=== PATIENT | male | born 1990 | race Caucasian/White ===

== ENCOUNTER 2020-02-22 18:51 | Emergency (ER) | payer SELFPAY ==
[~2020-02-22] VITALS: Ht 180.3 cm; Wt 70.3 kg
--- NOTE | 2020-02-22 19:27 | NUR ---
Jeremy Nicholas spoke with girlfriend, Ana Laura on the phone regarding pt status and plan of care.
--- NOTE | 2020-02-22 19:36 | ED Head Injury ---
General Chief Complaint: Head/Cervical Problems Stated Complaint: HEAD PAIN FROM FALL Nursing Triage Note: Pt reports tripping over shoes and falling face first into a trash can. Pt has 1.5 cm and 0.5 cm lacerations to R eye. Pt denies LOC but reports feeling "dazed" for a few seconds after accident. Source: patient Exam Limitations: no limitations History of Present Illness Date Seen by Provider: Feb 22, 2020 Time Seen by Provider: 19:32 Initial Comments To ER with reports of falling into a trash can just prior to arrival. Laceration to the lateral aspect right eyebrow and right lateral cheek. No loss of consciousness but he did feel dazed. He feels very fatigued since that happened but he states he only slept about 2 hours last night. Occurred: just prior to arrival Severity: moderate Loss of Consciousness: no loss of consciousness Associated Systoms: Headaches Allergies and Home Medications Patient Home Medication List Home Medication List Reviewed: Yes Review of Systems Review of Systems Constitutional: see HPI Eyes: No Symptoms Reported Ears, Nose, Mouth, Throat: no symptoms reported Respiratory: no symptoms reported Cardiovascular: no symptoms reported Genitourinary: no symptoms reported Musculoskeletal: no symptoms reported Skin: no symptoms reported Psychiatric/Neurological: No Symptoms Reported Endocrine: No Symptoms Reported Hematologic/Lymphatic: No Symptoms Reported Past Ycppxzs-Uwwohy-Qbtszu Hx Patient Social History Alcohol Use: Occasionally Uses Recreational Drug Use: Yes (marijuana) Smoking Status: Current Everyday Smoker Type Used: Cigarettes 2nd Hand Smoke Exposure: Yes Recent Foreign Travel: No Contact w/Someone Who Travel: No Recent Infectious Disease Expo: No Recent Hopitalizations: No Past Medical History Surgeries: Yes Nose Respiratory: Yes Asthma Cardiac: No Neurological: No Genitourinary: No Gastrointestinal: No Musculoskeletal: Yes (spinal stenosis) HEENT: No Psychosocial: Yes Anxiety Integumentary: No Physical Exam Vital Signs Capillary Refill : Less Than 3 Seconds Height, Weight, BMI Height: '" Weight: lbs. oz. kg; 21.00 BMI Method: General Appearance: WD/WN, no apparent distress HEENT: PERRL/EOMI, normal ENT inspection, TMs normal, other (there is a 1.570 laceration lateral aspect of the right eyebrow that is down to the subcutaneous tissue. There is a smaller 0.5 cm laceration and zygomatic process of the right cheek To the subcutaneous tissue. Each of these was anesthetized with a total of 1 mL of lidocaine without epinephrine and then scrubbed with chlorhexidine/saline solution and then sutured. The lower laceration got one simple interrupted 5-0 Ethilon suture the upper laceration one continuous suture 5-0 Ethilon.) Neck: non-tender, full range of motion Cardiovascular: regular rate, rhythm, no murmur Respiratory: no respiratory distress, no accessory muscle use Extremities: normal range of motion, non-tender Psychiatric: alert, oriented x 3 Crainal Nerves: normal hearing, normal speech, PERRL Skin: normal color, warm/dry Christina Coma Score Best Eye Response: (4) Open Spontaneously Best Verbal Response: (5) Oriented Best Motor Response: (6) Obeys Commands Christina Total: 15 Progress/Results/Core Measures Results/Orders My Orders Orders - VIRI MONTALVO APRN Ct Head Wo (02/22/20 19:10) Blood Pressure Mean: 93 Departure Impression Primary Impression: Mild concussion Qualified Codes: S06.0X1A - Concussion with loss of consciousness of 30 minutes or less, initial encounter Additional Impression: Facial laceration Qualified Codes: S01.81XA - Laceration without foreign body of other part of head, initial encounter Disposition: 01 HOME, SELF-CARE Condition: Stable Departure-Patient Inst. Decision time for Depature: 19:35 Referrals: UNKNOWN (PCP/Family) Primary Care Physician Patient Instructions: Laceration Repair With Stitches (DC) Add. Discharge Instructions: you can shower starting tonight leading water run over these. Return to ER for any concerns. Otherwise return in 5 days to have the stitches removed. Discharge instructions reviewed with patient and/or family. Voiced understanding. VIRI MONTALVO APRN Feb 22, 2020 19:36
--- NOTE | 2020-02-22 19:43 | Diagnostic Imaging Report ---
PROCEDURE: CT head without contrast. TECHNIQUE: Multiple contiguous axial images were obtained through the brain without the use of intravenous contrast. Auto Exposure Controls were utilized during the CT exam to meet ALARA standards for radiation dose reduction. INDICATION: Fall with head trauma. FINDINGS: The ventricles and sulci are within normal limits. There is no hydrocephalus or cerebral edema. There is no midline shift or mass effect. There is no intracranial mass, hemorrhage, or extra-axial fluid collection. The visualized paranasal sinuses and mastoid air cells are clear. There are no regional areas of decreased attenuation appreciated to suggest an acute CVA. IMPRESSION: No acute intracranial abnormality. Dictated by: Dictated on workstation # [id number]
--- NOTE | 2020-02-22 20:26 | NUR ---
Called girlfriend with dc instructions.
[2020-02-22 20:30] VITALS: BP 117/74
--- OUTSIDE RECORDS SUMMARY | 2020-02-22 21:10 | XMS REPORT | Continuity of Care Document ---
Author Organization Unknown Address Unknown Phone Unavailable Allergies Active Description Code Type Severity Reaction Onset Reported/Identified Relationship to Patient Clinical Status Yes morphine [id number] Drug Allergy Unknown Rash 02/22/2020 Yes Penicillins [id number] Drug Aller gy Unknown N/A 02/22/2020 Yes Sulfa (Sulfonamide Antibiotics) [id number] Drug Allergy Unknown N/A 020 Medications There is no data. Problems There is no data. Procedures There is no data. Results Test Result Range COVID-19 ([facility]) - 01/31/20 10:18 Encounters ACCT No. Visit Date/Time Discharge Status Pt. Type Provider Facility Loc./Unit Complaint [id number] 01/31/2020 16:30:00 01/31/2020 23:59: 59 [facility] Outpatient [facility] [id number] 01/31/2020 16:30:00 Document Registration [id number] 02/22/2020 18:55:00 020 20:29:00 DIS Emergency VIRI MONTALVO APRN [facility] ER HEAD PAIN FROM FALL
== END 2020-02-22 20:29 | disposition home or self-care (01) ==
LOC: ER 18:55
DX: S06.0X0A Concussion without loss of consciousness, initial encounter (principal); S01.81XA Laceration without foreign body of other part of head, initial encounter; S01.411A Laceration without foreign body of right cheek and temporomandibular area, initial encounter; R40.2142 Coma scale, eyes open, spontaneous, at arrival to emergency department; R40.2252 Coma scale, best verbal response, oriented, at arrival to emergency department; R40.2362 Coma scale, best motor response, obeys commands, at arrival to emergency department; F17.210 Nicotine dependence, cigarettes, uncomplicated; W01.198A Fall on same level from slipping, tripping and stumbling with subsequent striking against other object, initial encounter
CPT/HCPCS: 12011; 70450

== ENCOUNTER 2020-08-22 17:22 | Emergency (ER) | payer BC ==
[~2020-08-22] VITALS: Ht 180.3 cm; Wt 78.9 kg
[2020-08-22 17:32] VITALS: BP 119/74
--- NOTE | 2020-08-22 18:12 | ED General ---
General Stated Complaint: INGUINAL HERNIA PAIN Source of Information: Patient Exam Limitations: No Limitations History of Present Illness Date Seen by Provider: Aug 22, 2020 Time Seen by Provider: 18:09 Initial Comments This is a healthy-appearing 30-year-old who presents to the ER with complaints of left inguinal hernia 2 months. States he was urged by family members to come to ER for evaluation.That he does have an appointment with Dr. Garcia on September 01. States his hernia has been increasingly protruding, even though he has been abiding by weight lifting restrictions. States the hernia is not protruding at this time nor does he have any pain, he is just seeking further evaluation per family members urging. Denies fevers, chills, cough, shortness of breath, nausea, vomiting, abdominal pain, or difficulty urinating. Allergies and Home Medications Allergies Coded Allergies: Penicillins (Verified Allergy, Unknown, 02/22/20) "deadly" Sulfa (Sulfonamide Antibiotics) (Verified Allergy, Unknown, 02/22/20) morphine (Verified Allergy, Unknown, Rash, 02/22/20) Patient Home Medication List Home Medication List Reviewed: Yes Review of Systems Review of Systems Constitutional: no symptoms reported EENTM: no symptoms reported Respiratory: no symptoms reported Cardiovascular: no symptoms reported Gastrointestinal: no symptoms reported Genitourinary: see HPI Musculoskeletal: no symptoms reported Skin: no symptoms reported Psychiatric/Neurological: No Symptoms Reported Hematologic/Lymphatic: No Symptoms Reported Immunological/Allergic: no symptoms reported Past Xxdbbzf-Wmmzft-Oaeezk Hx Patient Social History Type Used: Cigarettes 2nd Hand Smoke Exposure: Yes Recent Foreign Travel: No Contact w/Someone Who Travel: No Recent Hopitalizations: No Past Medical History Surgeries: Yes Nose Respiratory: Yes Asthma Cardiac: No Neurological: No Genitourinary: No Gastrointestinal: No Musculoskeletal: Yes (spinal stenosis) HEENT: No Psychosocial: Yes Anxiety Integumentary: No Physical Exam Vital Signs Vital Signs - First Documented 08/22/20 17:32 Temp 36.5 Pulse 91 Resp 20 B/P (MAP) 119/74 (89) Pulse Ox 96 O2 Delivery Room Air Capillary Refill : Height, Weight, BMI Height: '" Weight: lbs. oz. kg; 21.00 BMI Method: General Appearance: No Apparent Distress, WD/WN HEENT: PERRL/EOMI, TMs Normal, Normal ENT Inspection, Pharynx Normal, Moist Mucous Membranes Neck: Full Range of Motion, Normal Inspection Respiratory: Lungs Clear, Normal Breath Sounds Cardiovascular: Regular Rate, Rhythm, No Murmur, Normal Peripheral Pulses Gastrointestinal: Normal Bowel Sounds, Non Tender, Soft Genital/Rectal: Normal Genital Exam, Other (neg protrusion of inguinal hernia ) Back: Normal Inspection, No Vertebral Tenderness Extremity: Normal Capillary Refill, Normal Inspection, Normal Range of Motion Neurologic/Psychiatric: Alert, Oriented x3, No Motor/Sensory Deficits, Normal Mood/Affect Skin: Normal Color, Warm/Dry Progress/Results/Core Measures Suspected Sepsis SIRS Temperature: Pulse: Respiratory Rate: Blood Pressure / Mean: Results/Orders Vital Signs/I&O Capillary Refill : Progress Note : Progress Note Pt. examined. Has no protrusion of hernia at this time nor does he have any pain. States he just wanted to get checked out per family urging. Reviewed techniques to reduce the frequency of hernia protrusion. Verbalized understanding. He was given irving bandages to make an inguinal binder, to see if this helps reduce frequency. Reviewed discharge plan and he is agreeable with plan. Departure Impression Primary Impression: Inguinal hernia Disposition: 01 HOME, SELF-CARE Condition: Stable/Unchanged Departure-Patient Inst. Decision time for Depature: 18:10 Referrals: NO,LOCAL PHYSICIAN (PCP/Family) Primary Care Physician Patient Instructions: Inguinal and Femoral (Groin) Hernias Add. Discharge Instructions: Plan: 1. Discharge home. Keep follow up with Dr. Garcia on 09/01 as previously scheduled. 2. May take Tylenol or Ibuprofen as needed for pain per package instructions. 3. No lifting anything over 10 pounds. Avoid strenuous activity. Use irving wrap to make binder for groin. 4. You can also try wearing more supportive underwear. 5. Return to ER if you are unable to reduce your hernia or you have pain that wont go away. 6. Return for any new or concerning symptoms. MADELINE RODRIGUES SHOP TECHNICIAN Aug 22, 2020 18:12
== END 2020-08-22 18:17 | disposition home or self-care (01) ==
LOC: EDUNIT# 17:22 → ER 17:24
DX: K40.90 Unilateral inguinal hernia, without obstruction or gangrene, not specified as recurrent (principal); Z88.0 Allergy status to penicillin; Z88.5 Allergy status to narcotic agent; Z88.2 Allergy status to sulfonamides; Z77.22 Contact with and (suspected) exposure to environmental tobacco smoke (acute) (chronic)
CPT/HCPCS: 99282

== ENCOUNTER 2020-09-09 05:34 | Outpatient (RCR) | payer BC ==
[~2020-09-09] VITALS: Ht 180 cm; Wt 81.0 kg
[~2020-09-09 05:34] MED LIST: ASPI-992 PO; KETO10TA PO; RT-ALBUINH IH
[2020-09-11] MEDS ORDERED: DOCU-143 PO (09:57)
[2020-09-11] MEDS ORDERED: ACHD5005 PO (09:57)
== END 2020-09-10 10:04 | disposition home or self-care (01) ==
LOC: PREOP 05:34
PROVIDERS: ATTEND Surgery
DX: Z01.812 Encounter for preprocedural laboratory examination (principal); K40.90 Unilateral inguinal hernia, without obstruction or gangrene, not specified as recurrent; Z20.822 Contact with and (suspected) exposure to COVID-19
CPT/HCPCS: 87635

== ENCOUNTER 2020-09-11 07:52 | Day surgery (SDC) | payer BC ==
[2020-09-11] VITALS (9 sets, daily range): BP systolic 100–131; BP diastolic 52–89
[~2020-09-11] VITALS: Ht 180 cm; Wt 81.0 kg
[2020-09-11] MEDS ORDERED: LIDOCAINE/EPI 1%-1:200,000 (XYLOCAINE) 10 ML VIAL ONE (07:56)
[2020-09-11] MEDS ORDERED: CLINDAMYCIN 600 MG/50 ML IVPB 50 ML IV ONE (08:00)
--- NOTE | 2020-09-11 08:04 | Progress Note-Pre Operative ---
Pre-Operative Progress Note H&P Reviewed The H&P was reviewed, patient examined and no changes noted. Date Seen by Provider: Sep 11, 2020 Time Seen by Provider: 08:04 Date H&P Reviewed: Sep 11, 2020 Time H&P Reviewed: 08:04 Pre-Operative Diagnosis: left inguinal hernia MICHELE ARCHER DO Sep 11, 2020 08:04
[2020-09-11] MEDS: LACTATED RINGERS 1,000 ML IV PRN ×2 (08:30→10:13)
[2020-09-11] MEDS ORDERED: fentaNYL INJECTION 100 MCG/2 ML AMP ONE ×2 (08:44→09:22)
[2020-09-11] MEDS ORDERED: MIDAZOLAM 2 MG/2 ML (VERSED) VIAL ONE (08:44)
[2020-09-11] MEDS ORDERED: LIDOCAINE PF 2% 5 ML (XYLOCAINE) VIAL ONE (08:44)
[2020-09-11] MEDS ORDERED: ROCURONIUM 10 MG/ML 5 ML SYRINGE IV ONE (08:44)
[2020-09-11] MEDS ORDERED: proPOfol 200 MG/20 ML (DIPRIVAN) VIAL IV ONE (08:44)
[2020-09-11] MEDS ORDERED: ONDANSETRON 4 MG/2 ML (SDV) Z0FRAN ONE (08:44)
[2020-09-11] MEDS ORDERED: NEOSTIGMINE 3 MG/3 ML VIAL ONE (08:45)
[2020-09-11] MEDS ORDERED: SEVOFLURANE (ULTANE) 15 ML INHAL SOLN ONE (08:45)
[2020-09-11] MEDS ORDERED: GLYCOPYRROLATE 0.2 MG/ML (ROBINUL) 2 ML VIAL ONE (08:45)
[2020-09-11] MEDS ORDERED: MEPERIDINE (DEMEROL) INJ 50 MG/ML IVP ONE (09:30)
[2020-09-11] MEDS ORDERED: fentaNYL INJECTION 100 MCG/2 ML AMP IVP ONE (09:30)
[2020-09-11] MEDS ORDERED: ONDANSETRON 4 MG/2 ML (SDV) Z0FRAN IVP PRN (09:30)
--- NOTE | 2020-09-11 09:56 | Progress Note-Post Operative ---
Post-Operative Progess Note Surgeon (s)/Custodian Supervisor (s) Surgeon MICHELE ARCHER DO Custodian Supervisor: Dr. Lim to assist in retraction dissection and closure Pre-Operative Diagnosis left inguinal hernia Post-Operative Diagnosis indirect inguinal hernia left Procedure & Operative Findings Date of Procedure 09/11/20 Procedure Performed/Findings PROCEDURE: Open left inguinal hernia repair COMPLICATIONS: None. INDICATIONS: The patient is a 30, male male with a inguinal hernia. He understands risks and benefits of procedure and wished to proceed with procedure. Consent was signed in the chart. DESCRIPTION OF PROCEDURE: The patient was taken to the operating suite, was prepped and draped in sterile fashion. Surgical pause was performed. Local anesthetic was infiltrated in the lower quadrant. Incision was made and cautery used to dissect down to the external oblique, which was then opened down through the external ring. The spermatic cord was then dissected around. A Myles drain was placed around it and there was no direct defect present. A indirect hernia present which was then dissected off of spermatic cord. The hernia sac was then twisted and suture ligated. Using ProGrip mesh, this was secured at Ulices's ligament and then incorporated around the spermatic cord and placed under the external oblique. Hemostasis was achieved. The external oblique was then closed recreating the external ring and then the subcutaneous tissues were then reapproximated using 3-0 Vicryl and skin was then closed using 4-0 Monocryl in a subcuticular fashion. The abdomen was then washed and dried and Skin Affix was placed over the incision. The patient tolerated procedure well without any complications and taken to recovery room in stable condition. Anesthesia Type general Estimated Blood Loss Estimated blood loss (mL): minimal Specimens/Packing Specimens Removed hernia sac MICHELE ARCHER DO Sep 11, 2020 09:56
[2020-09-11] MEDS ORDERED: ACHD5005 PO (09:57)
[2020-09-11] MEDS ORDERED: DOCU-143 PO (09:57)
--- NOTE | 2020-09-11 09:58 | Discharge Inst-Simple/Standard ---
Discharge Inst-Standard Discharge Medications New, Converted or Re-Newed RX: RX on Chart Patient Instructions/Follow Up Plan of Care/Instructions/FU: 3 weeks Jose Activity as Tolerated: No Discharge Diet: Regular Diet Other Inst to Patient Follow up Appt: Make appointment for 3 week. Instructions: No lifting greater than 10 pounds. No strenuous activity. May shower in 24 hours, no tub bath or soaking. Use incentive spirometer at home as directed. No Smoking Skin/Wound Care: You have special glue over your incision that will fall off on it's own. Symptoms to Report: Appetite Changes, Extremity Discoloration, Numbness/Tingling, Swelling Increased, Bleeding Excessive, Eyesight Changes, Pain Increased, Urine Color Change, Constipation(Persistent), Fever over 101 degree F, Pain/Pressure in chest, Urinating Difficulty, Cough Up/Vomit Blood, Heart Beat Irreg/Pounding, Pain/Pressure in jaw, Vaginal Bleeding Increase, Cramps in feet or legs, Lightheadedness, Pain/Pressure in shoulder, Diarrhea(Persistent), Memory Changes Suddenly, Questions/Concerns, Weight gain consecutive days, Dizziness/Fainting, Nausea/Vomiting, Shortness of Breath, Weight gain over 2 pounds If questions or concerns contact your physician Or seek help at emergency department. MICHELE ARCHER DO Sep 11, 2020 09:58
--- NOTE | 2020-09-11 14:08 | Anesthesia-General Post-Op ---
General Patient Condition Mental Status/LOC: Same as Preop Cardiovascular: Satisfactory Nausea/Vomiting: Absent Respiratory: Satisfactory Pain: Controlled Complications: Absent Post Op Complications Complications None Follow Up Care/Instructions Patient Instructions None needed. Anesthesia/Patient Condition Patient Condition Patient is doing well, no complaints, stable vital signs, no apparent adverse anesthesia problems. No complications reported per nursing. STALIN STRANGE CRNA Sep 11, 2020 14:08
== END 2020-09-11 12:35 | disposition home or self-care (01) ==
LOC: SDC 07:52
PROVIDERS: ATTEND Surgery
DX: K40.90 Unilateral inguinal hernia, without obstruction or gangrene, not specified as recurrent (principal); J45.909 Unspecified asthma, uncomplicated; F41.9 Anxiety disorder, unspecified; K21.9 Gastro-esophageal reflux disease without esophagitis; F17.210 Nicotine dependence, cigarettes, uncomplicated; Z79.899 Other long term (current) drug therapy; Z79.51 Long term (current) use of inhaled steroids; Z88.0 Allergy status to penicillin; Z88.2 Allergy status to sulfonamides; Z88.5 Allergy status to narcotic agent
CPT/HCPCS: 49505; 87081; C1781

== ENCOUNTER 2021-03-04 18:33 | Emergency (ER) | payer BC ==
[~2021-03-04] VITALS: Ht 180 cm; Wt 86.1 kg
[~2021-03-04 18:33] MED LIST changes: +ACHD5005 PO; +DOCU-143 PO
--- NOTE | 2021-03-04 19:01 | ED Back Pain ---
General Chief Complaint: Back Problems Stated Complaint: BACK PAIN Nursing Triage Note: Patient ambulatory to ER with c/o middle back pain. Pt states he was sick over the weekend with cough, hot flashes and decreased appetite.He states he is better from that but now has pain to the middle of his spine. He denies any recent injuries. Source of Information: Patient Exam Limitations: No Limitations History of Present Illness Date Seen by Provider: Mar 04, 2021 Time Seen by Provider: 18:51 Allergies and Home Medications Allergies Coded Allergies: Penicillins (Verified Allergy, Unknown, 02/22/20) "deadly" Sulfa (Sulfonamide Antibiotics) (Verified Allergy, Unknown, 02/22/20) morphine (Verified Allergy, Unknown, Rash, 02/22/20) Home Medications Albuterol Sulfate 1 Puff Puff, 2 PUFF IH Q4H, (Reported) 1 PUFF = 90 MCG Docusate Sodium 100 Mg Capsule, 100 MG PO BID Prescribed by: MICHELE ARCHER on 09/11/20 0957 Hydrocodone/Acetaminophen 1 Each Tablet, 1 EACH PO Q4H PRN for PAIN-MODERATE (5- 7) Prescribed by: MICHELE ARCHER on 09/11/20 0957 Past Jwrhdzx-Dzevde-Fqvfmi Hx Patient Social History Tobacco Use?: Yes Tobacco type used: Cigarettes Smoking Status: Current Someday Smoker Smokeless Tobacco Frequency: Never a User Use of E-Cig and/or Vaping dev: No Substance use?: No Alcohol Frequency: Once in a while Pt feels they are or have been: No Immunizations Up To Date Tetanus Booster (TDap): Unknown Seasonal Allergies Seasonal Allergies: No Past Medical History Surgery/Hospitalization HX: hernia repair, nasal surgery Surgeries: Yes Nose Respiratory: Yes Asthma Currently Using CPAP: No Currently Using BIPAP: No Cardiac: No Neurological: Yes Headaches /Migraines Genitourinary: No Gastrointestinal: No Musculoskeletal: Yes (spinal stenosis) Endocrine: No HEENT: No Cancer: No Psychosocial: Yes Anxiety Integumentary: No Blood Disorders: No Physical Exam Vital Signs Vital Signs - First Documented 03/04/21 18:44 Temp 37.3 Pulse 92 Resp 16 B/P (MAP) 126/80 (95) Pulse Ox 97 O2 Delivery Room Air Capillary Refill : Less Than 3 Seconds Height, Weight, BMI Height: '" Weight: lbs. oz. kg; 26.00 BMI Method: Progress/Results/Core Measures Results/Orders Lab Results Laboratory Tests Test 03/04/21 19:03 03/04/21 19:06 Range/Units Urine Color YELLOW Urine Clarity CLEAR Urine pH 7.5 5-9 Urine Specific [employer] 1.015 L 1.016-1.022 Urine Protein NEGATIVE NEGATIVE Urine Glucose (UA) NEGATIVE NEGATIVE Urine Ketones NEGATIVE NEGATIVE Urine Nitrite NEGATIVE NEGATIVE Urine Bilirubin NEGATIVE NEGATIVE Urine Urobilinogen 1.0 < = 1.0 MG/DL Urine Leukocyte Esterase NEGATIVE NEGATIVE Urine RBC (Auto) NEGATIVE NEGATIVE Urine RBC NONE /HPF Urine WBC NONE /HPF Urine Crystals PRESENT H /LPF Urine Amorphous Sediment LARGE MESFIN PHOSPHATE H /LPF Urine Bacteria NEGATIVE /HPF Urine Casts NONE /LPF Urine Mucus NEGATIVE /LPF Urine Culture Indicated NO Influenza Type A (RT-PCR) Not Detected Not Detecte Influenza Type B (RT-PCR) Not Detected Not Detecte SARS-CoV-2 RNA (RT-PCR) Detected H Not Detecte My Orders Orders - MADELINE RODRIGUES AUTOMOTIVE CUSTOMER EXPERIENCE ADVISOR Ua Culture If Indicated (03/04/21 18:37) Covid 19 Inhouse Test (03/04/21 19:01) Influenza A And B By Pcr (03/04/21 19:01) Vital Signs/I&O 03/04/21 18:44 Temp 37.3 Pulse 92 Resp 16 B/P (MAP) 126/80 (95) Pulse Ox 97 O2 Delivery Room Air Blood Pressure Mean: 95 Departure Impression Primary Impression: COVID-19 Disposition: 01 HOME, SELF-CARE Condition: Stable Departure-Patient Inst. Decision time for Depature: 20:08 Referrals: NO,LOCAL PHYSICIAN (PCP/Family) Primary Care Physician Patient Instructions: COVID-19 ED, COVID-19 (DC) Add. Discharge Instructions: Plan: 1. Isolate at home until you are released by the [facility]. 2. Drink plenty of fluids. Use your incentive spirometer every 2 hours while awake as shown in ED. 3. Take your steroids with food. 4. Return for any new, concerning, or worsening symptoms. All discharge instructions reviewed with patient and/or family. Voiced understanding. Scripts Methylprednisolone (Methylprednisolone Dose Pack) 4 Mg Tab.ds.pk 4 MG PO UD for 6 Days, #21 PKG 0 Refills PER DOSE PACK INSTRUCTIONS Prov: LILIAMADELINE WALL APRN 03/04/21 MADELINE RODRIGUES APRN Mar 04, 2021 19:01
[2021-03-04 19:15] LABS: BILIRUBIN,URINE NEGATIVE (NEGATIVE); CLARITY,URINE CLEAR; COLOR,URINE YELLOW; GLUCOSE, URINE (UA) NEGATIVE (NEGATIVE); KETONES,URINE NEGATIVE (NEGATIVE); LEUKOCYTE ESTERASE ,URINE NEGATIVE (NEGATIVE); NITRITE,URINE NEGATIVE (NEGATIVE); PH,URINE 7.5 (5-9); PROTEIN,URINE NEGATIVE (NEGATIVE)
[2021-03-04 20:04] LABS: AMORPHOUS SEDIMENT,UR LARGE AMOR PHOSPHATE /LPF; BACTERIA,URINE NEGATIVE /HPF
[2021-03-04] MEDS ORDERED: METH4TAB10 PO (20:08)
[2021-03-04 20:19] VITALS: BP 126/82
[2021-03-04] MEDS ORDERED: KETOROLAC 30 MG/ML VIAL IM ONE (20:30)
[2021-03-04] MEDS ORDERED: ORPHENADRINE 60 MG/2 ML (NORFLEX) AMP (ED ONLY) IM ONE (20:30)
[2021-03-04] MEDS ORDERED: MUPIROCIN 2% OINT 22 GM (BACTROBAN) TUBE NSEACH SCH (21:00)
== END 2021-03-04 20:34 | disposition home or self-care (01) ==
LOC: EDUNIT# 18:33 → ER 18:38
DX: U07.1 COVID-19 (principal); F17.210 Nicotine dependence, cigarettes, uncomplicated
CPT/HCPCS: 81000; 87636

== ENCOUNTER → 2021-08-05 | Outpatient (CLI) | payer BC, OTHER ==
[~2021-08-05] MED LIST changes: +METH4TAB10 PO
--- NOTE | 2021-08-05 16:36 | Diagnostic Imaging Report ---
INDICATION: Chest and rib pain. COMPARISON: None. FINDINGS: Single view of the chest and three views of the left ribs demonstrate no osseous lesion or fracture. Lungs are clear. There is no pneumothorax. IMPRESSION: Negative chest and left rib series. Dictated by: Dictated on workstation # [id number]
--- NOTE | 2021-08-05 16:47 | Diagnostic Imaging Report ---
PROCEDURE: CT abdomen and pelvis without contrast. TECHNIQUE: Multiple contiguous axial images were obtained through the abdomen and pelvis without the use of intravenous contrast. Auto Exposure Controls were utilized during the CT exam to meet ALARA standards for radiation dose reduction. INDICATION: Trauma with left upper quadrant pain. COMPARISON: None. FINDINGS: The lung bases free of acute infiltrate. No evidence for aspiration, contusion or basilar hemothorax or pneumothorax. The visualized lower left and right rib segments showed no identifiable fracture deformity. The diaphragm is intact. There is no abdominal pelvic free fluid or hemoperitoneum. There is no free air. The unopacified liver and spleen appear nonfocal. No subcapsular collection. The adrenals, pancreas and unobstructed kidneys appear normal. No biliary abnormality. No mesenteric or bowel wall thickening or hematoma. No free air. This patient has chronic L5 spondylolysis defects with mild anterior grade 1 slip. Remaining visualized thoracolumbar segments unremarkable. No acute appearing bony pathology. 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 No acute osseous pathology and no findings of hemorrhage or acute solid/hollow visceral pathology revealed at this nonenhanced exam. Dictated by: Dictated on workstation # [id number]
== END ==
LOC: RAD 15:56
PROVIDERS: ATTEND Physician Assistant
DX: M47.816 Spondylosis without myelopathy or radiculopathy, lumbar region (principal); S39.91XA Unspecified injury of abdomen, initial encounter
CPT/HCPCS: 71101; 74176